=== PATIENT | female | born 1965 | race Caucasian/White ===

== ENCOUNTER 2016-10-16 08:17 | Emergency (ER) | payer OTHER ==
[~2016-10-16] VITALS: Ht 167.6 cm; Wt 85.0 kg
[~2016-10-16 08:17] MED LIST: ALBU8.5H5 INH; BEN50 PO; BUDE6HFA IH; HYD25 PO; LEVO137T3 PO; LORA10TA3 PO; LOSA50TA6 PO; MECL12.574 PO; OFLO5DRO7 RIGHT EAR; PRED20TA PO
[2016-10-16 08:21] VITALS: Ht 167.6 cm; Wt 85.0 kg
[2016-10-16 09:05] LABS: ADD SCAN DIFF NO
[2016-10-16 09:11] LABS: BASOPHIL # 0.1 10^3/ul (0.0-0.1); BASOPHILS % 0.9 % (0.0-2.0); EOSINOPHILS # 0.3 10^3/ul (0.0-0.5); HEMATOCRIT 39.8 % (37.0-47.0); HEMOGLOBIN 13.4 g/dl (12.0-16.0); LYMPHOCYTES # 3.1 10^3/ul (0.8-2.9); LYMPHOCYTES % 33.1 % (15.0-51.0); MEAN CORPUSCULAR HEMOGLOBIN 28.8 pg (29.0-33.0); MEAN CORPUSCULAR HGB CONC 33.7 g/dl (32.0-37.0); MEAN CORPUSCULAR VOLUME 85.4 fl (82.0-101.0); MEAN PLATELET VOLUME 10.8 fl (7.4-10.4); MONOCYTE # 0.7 10^3/ul (0.3-0.9); MONOCYTES % 7.8 % (0.0-11.0); NEUTROPHIL # 5.2 10^3/ul (1.6-7.5); NEUTROPHILS % 54.9 % (39.0-77.0); PLATELET COUNT 385 10^3/UL (140-415); RED BLOOD COUNT 4.66 10^6/ul (4.20-5.40); RED CELL DISTRIBUTION WIDTH 12.8 % (11.5-14.5); WHITE BLOOD COUNT 9.4 10^3/ul (4.8-10.8)
--- NOTE | 2016-10-16 09:11 | RADRPT ---
PROCEDURE: Chest x-ray CLINICAL INDICATION: Chest pain TECHNIQUE: Chest single view COMPARISON: 11/02/2012 FINDINGS: The heart is normal in size. The pulmonary vessels are normal in caliber. The lungs are clear. Th e costophrenic angles are sharp. The visualized bony thorax is unremarkable. As before there is shira gical clips in the left upper quadrant IMPRESSION: No acute cardiopulmonary disease. RPTAT: HH .Da Hernandez MD, MD Date Time Electronically viewed and signed by .Da Hernandez MD, on 10/16/2016 09:11 .W/
[2016-10-16 09:25] LABS: INR 0.81; PROTIME 11.2 Sec (12.2-14.2); PT RATIO 0.9
[2016-10-16 09:26] LABS: PARTIAL THROMBOPLASTIN TIME 26.1 Sec (25.0-35.0)
[2016-10-16] MEDS ORDERED: KETOROLAC 30 MG INJ IV STA ×2 (09:31→10:59)
[2016-10-16 09:32] LABS: ANION GAP 17 (8-16); BLOOD UREA NITROGEN 21 mg/dl (7-20); CALCIUM 9.7 mg/dl (8.4-10.2); CARBON DIOXIDE 27 mmol/L (21-31); CHLORIDE 105 mmol/L (97-110); CREATININE 1.15 mg/dl (0.44-1.00); GLUCOSE 106 mg/dl (70-220); POTASSIUM 4.5 mmol/L (3.5-5.1); SODIUM 144 mmol/L (135-144)
[2016-10-16 09:44] LABS: B-TYPE NATRIURETIC PEPTIDE 419 PG/ML (0-125)
[2016-10-16 09:48] LABS: TROPONIN-I < 0.012 ng/ml (0.00-0.12)
[2016-10-16] MEDS ORDERED: IBUP800T25 PO (11:00)
--- NOTE | 2016-10-16 11:00 | ERD ---
ER Documentation Chief Complaint Date/Time DATE: 10/16/16 TIME: 10:57 Chief Complaint STARTED METOPROLOL AND COMPLAINING OF CHEST PAIN HPI This is a 51-year-old female with a history of hypertension who presents to the emergency room for evaluation of chest pain. The patient states that yesterday she was prescribed metoprolol by her visual associate, Dr. gifford, after she called them and was complaining of chest pain. She states her chest pain is been constant, is worse with any deep inspiration in. She denies any shortness of breath or palpitations or nausea or vomiting associated with this. She localizes the pain to the left portion of her chest and came to the ER today for evaluation. ROS All systems reviewed and are negative except as per history of present illness. Medications Home Meds Active Scripts Diphenhydramine Hcl* (Benadryl*) 50 Mg Cap, 50 MG PO Q6 Y for ITCHING, #30 Prov:OSMAN DICKERSON PA-C 02/14/15 Albuterol Sulfate* (Albuterol Sulfate* HFA) 8.5 Gm Hfa.aer.ad, 1-2 PUFF INH Q4 Y for SHORTNESS OF BREATH, #1 EA Prov:OSMAN DICKERSON PA-C 02/14/15 Prednisone* (Prednisone*) 20 Mg Tab, 40 MG PO DAILY for 4 Days, TAB Prov:OSMAN DICKERSON PA-C 02/14/15 Ofloxacin* (Floxin* Otic) 0.3% -10 Ml Soln, 10 DROP RIGHT EAR BID for 10 Days, BOTTLE Prov:OSMAN DICKERSON PA-C 02/14/15 Meclizine Hcl* (Antivert*) 12.5 Mg Tab, 25 MG PO BID for 7 Days, TAB Prov:ROBERTO REARDON NP 02/13/14 Reported Medications Budesonide-Formoterol Fumarate* (Symbicort*) 160-4.5 Hfa.aer.ad, 1 PUFF IH BID, INH 02/12/14 Levothyroxine Sodium* (Levothyroxine Sodium*) 137 Mcg Tablet, 137 MCG PO DAILY, TAB 02/11/14 Loratadine* (Loratadine*) 10 Mg Tablet, 10 MG PO DAILY, TAB 02/11/14 Losartan Potassium* (Losartan Potassium*) 50 Mg Tablet, 50 MG PO DAILY, TAB 02/11/14 Hydrochlorothiazide* (Hydrochlorothiazide*) 25 Mg Tab, 25 MG PO DAILY, TAB 02/11/14 Allergies Allergies: Coded Allergies: milk (Verified Allergy, Intermediate, ANAPHYLAXIS, 11/02/12) No Known Drug Allergies (Verified Allergy, Unknown, 02/11/14) Uncoded Allergies: CATS (Allergy, Severe, 11/02/12) PMhx/Soc History of Surgery: Yes (CHOLY, APPY, HYST, ANEUYRISM BRAIN) Anesthesia Reaction: No Hx Neurological Disorder: No Hx Respiratory Disorders: No Hx Cardiac Disorders: No Hx Psychiatric Problems: No Hx Miscellaneous Medical Probl: No Hx Alcohol Use: No Hx Substance Use: No Hx Tobacco Use: No Smoking Status: Never smoker Physical Exam Vitals Vital Signs Date Time Temp Pulse Resp B/P Pulse Ox O2 Delivery O2 Flow Rate FiO2 10/16/16 08:45 Nasal Cannula 2 10/16/16 08:21 98.3 78 18 131/91 98 Physical Exam INITIAL VITAL SIGNS: Reviewed by me GENERAL: The patient is well developed and appropriate for usual state of health in no apparent distress HEENT: Pupils equal, round, and reactive to light. EOMI. There is no scleral icterus. NECK: C-spine is soft and supple, there is no meningismus. There is no cervical lymphadenopathy. LUNGS: Clear to auscultation bilaterally. There are no rales, wheezes or rhonchi. HEART: Regular rate and rhythm, no murmurs, clicks, rubs or gallops. ABDOMEN: Soft, non-tender, non-distended. There are bowel sounds in all four quadrants. No rebound or guarding. EXTREMITIES: There is no peripheral cyanosis or edema. No focal swelling or erythema. NEUROLOGICAL: The patient moves all four extremities with 5/5 strength. Cranial nerves II - XII are intact. Normal gait. Alert and oriented SKIN: There is no apparent rash or petechiae. Musculoskeletal: Tender to palpation of the anterior chest wall HEME/LYMPHATIC: There is no evidence of excessive bruising or lymphedema. PSYCHIATRIC: The patient does appear mildly anxious Result Diagram: 10/16/16 0851 10/16/16 0851 Results 24 hrs Laboratory Tests Test 10/16/16 08:51 White Blood Count 9.410^3/ul Red Blood Count 4.6610^6/ul Hemoglobin 13.4g/dl Hematocrit 39.8% Mean Corpuscular Volume 85.4fl Mean Corpuscular Hemoglobin 28.8pg Mean Corpuscular Hemoglobin Concent 33.7g/dl Red Cell Distribution Width 12.8% Platelet Count 12917^3/UL Mean Platelet Volume 10.8fl Neutrophils % 54.9% Lymphocytes % 33.1% Monocytes % 7.8% Eosinophils % 3.0% Basophils % 0.9% Nucleated Red Blood Cells % 0.0/100WBC Neutrophils # 5.210^3/ul Lymphocytes # 3.110^3/ul Monocytes # 0.710^3/ul Eosinophils # 0.310^3/ul Basophils # 0.110^3/ul Nucleated Red Blood Cells # 0.010^3/ul Prothrombin Time 11.2Sec Prothrombin Time Ratio 0.9 INR International Normalized Ratio 0.81 Activated Partial Thromboplast Time 26.1Sec Sodium Level 144mmol/L Potassium Level 4.5mmol/L Chloride Level 105mmol/L Carbon Dioxide Level 27mmol/L Anion Gap 17 Blood Urea Nitrogen 21mg/dl Creatinine 1.15mg/dl Glucose Level 106mg/dl Calcium Level 9.7mg/dl Troponin I < 0.012ng/ml B-Type Natriuretic Peptide 419PG/ML Current Medications Medications (Trade) Dose Ordered Sig/Darrell Route PRN Reason Start Time Stop Time Status Last Admin Dose Admin Ketorolac Tromethamine (Toradol) 30 mg ONCE STAT IV 10/16/16 09:31 10/16/16 09:32 DC Procedures/MDM EKG: Rate/Rhythm: [Normal Sinus Rhythm] QRS, ST, T-waves: [No changes consistent w/ acute ischemia] Impression: [No evidence of ischemia or arrhythmia] Chest X-ray 1V Interpreted by me: Soft Tissue: No acute abnormalities Bones: No acute abnormalities Mediastinum/Cardiac Silhouette/Lungs: [No acute abnormalities] This 61-year-old female presents to the ER for evaluation of chest pain. When I evaluated her she did appear to be anxious. I did do a cardiac workup on this patient. Lab work is within normal limits including a troponin. The patient's EKG is nonischemic, and her chest x-ray is clear. The patient did have reproducible chest pain with anterior palpation of the chest wall. I do believe the patient is suffering from costochondritis. She was given Toradol in the emergency room and will be discharged home at this time with a prescription for Motrin and instructions to return to the ER if her pain does not improve. Differential diagnoses entertained was broad with potential high acuity. Patient has been evaluated for acute myocardial infarction, unstable angina, aortic dissection, pulmonary embolism, other intrathoracic and cardiac concerns. Ultimately the patient's evaluation is nondiagnostic. Based on the patient's lack of risk factors, as well as the patient's clinical, laboratory, and imaging data, the patient appears to be low risk for these high risk causes of chest pain. Departure Diagnosis: Primary Impression: Costochondritis, acute Additional Impressions: Chest pain Renal insufficiency Condition: Stable ALEC ALY DO Oct 16, 2016 10:59
[2016-10-16 11:21] VITALS: BP 123/64; PULSE 78; RESP 18
== END 2016-10-16 11:22 | disposition home or self-care (01) ==
LOC: E/R 08:17
DX: M94.0 Chondrocostal junction syndrome [Tietze] (principal); N28.9 Disorder of kidney and ureter, unspecified; I10 Essential (primary) hypertension
CPT/HCPCS: 36415; 71010; 80048; 83880; 84484; 85025; 85610; 85730; 93005; 96374; J1885; Z7502

== ENCOUNTER 2018-12-10 23:05 | Emergency (ER) | payer SELFPAY ==
[~2018-12-10] VITALS: Ht 160 cm; Wt 85.4 kg
[~2018-12-10 23:05] MED LIST changes: -HYD25 PO; +HYDR25TA6 PO; +IBUP-1544 PO; +LOSA50TA14 PO; -LOSA50TA6 PO
[2018-12-10 23:09] VITALS: BP 190/96; PULSE 73; RESP 24; Ht 160 cm; Wt 85.4 kg
== END 2018-12-10 23:12 | disposition left against medical advice (07) ==
LOC: FTE 23:05
DX: Z53.21 Procedure and treatment not carried out due to patient leaving prior to being seen by health care provider (principal)